=== PATIENT | female | born 1995 | race Caucasian/White ===

== ENCOUNTER → 2018-05-16 14:05 | Outpatient (REF) | payer OTHER, SELFPAY ==
--- NOTE | 2018-05-16 13:45 | PAPFT_PTH ---
PATIENT: Racquel Greene LOC: [facility] U#:[id number] AGE/SX: 30/F ROOM: RE05/16/[address]: DAYA Preciado : 1995 BED: DIS: SPEC #: [id number] RECD: 05/16/18 16:22 STATUS: MAXIME GERBER #: [id number] [place]: 05/16/18 13:[address]: Ema Greco DEPT: [facility] Cytology RECD BY: Coty Lockhart ENTERED: 05/16/18 16:23 SP TYPE: PAPFT OTHR DR: Lakshmi Don APRN Tissues: 1 - CX/ENDOCX FOR PAP SMEARS Procedures: PAP THIN PREP/[facility] Screening Comments: [id number]
[2018-05-19 14:40] LABS: Chlamydia Result Negative; GC Result Negative; Specimen Description CERVIX
== END ==
LOC: LBN 14:05
PROVIDERS: PCP Nurse Practitioner; Visit Provider Nurse Practitioner Family
DX: Z12.4 Encounter for screening for malignant neoplasm of cervix
CPT/HCPCS: 87491; 87591; 88142

== ENCOUNTER 2019-03-06 12:00 | Outpatient (REF) | payer OTHER, SELFPAY ==
[2019-03-09 13:46] LABS: Chlamydia Result Negative; GC Result Negative; Specimen Description URINE
== END 2019-03-06 12:20 ==
LOC: LBN 12:00
PROVIDERS: PCP Nurse Practitioner; Visit Provider Nurse Practitioner Women's Health
DX: Z11.3 Encounter for screening for infections with a predominantly sexual mode of transmission (principal)
CPT/HCPCS: 87491; 87591

== ENCOUNTER 2020-08-30 15:16 | Outpatient (REF) | payer OTHER, SELFPAY ==
--- NOTE | 2020-08-30 13:15 | PAPFT_PTH ---
PATIENT: Racquel Greene LOC: [facility] U#:[id number] AGE/SX: 25/F ROOM: RE08/30/[address]: DAYA Preciado : 1995 BED: DIS: 08/30/2020 SPEC #: [id number] RECD: 08/30/20 17:53 STATUS: MAXIME REQ #: [id number] [place]: 08/30/20 13:[address]: Ema Greco DEPT: [facility] Cytology RECD BY: Coty Lockhart ENTERED: 08/30/20 17:53 SP TYPE: PAPFT CORWIN DR: Lakshmi Don APRN Tissues: 1 - CX/ENDOCX FOR PAP SMEARS Procedures: PAP THIN PREP/[facility] Screening Comments: [id number]
== END 2020-08-30 15:36 ==
LOC: LBN 15:16
PROVIDERS: PCP Nurse Practitioner; Visit Provider Nurse Practitioner Family
DX: Z12.4 Encounter for screening for malignant neoplasm of cervix (principal); R87.610 Atypical squamous cells of undetermined significance on cytologic smear of cervix (ASC-US)
CPT/HCPCS: 88142

== ENCOUNTER 2021-04-03 02:43 | Outpatient (CLI) | payer OTHER, SELFPAY ==
[2021-04-05 14:22] LABS: COVID-19 RT-PCR UVMMC Result Negative (Negative)
== END 2021-04-03 02:44 | disposition home or self-care (01) ==
LOC: LBO 02:43
PROVIDERS: PCP Nurse Practitioner; Visit Provider Nurse Practitioner
DX: Z20.822 Contact with and (suspected) exposure to COVID-19 (principal)
CPT/HCPCS: U0003